=== PATIENT | male | born 1980 | race Caucasian/White ===

== ENCOUNTER 2020-02-22 08:28 | Emergency (ER) | payer SELFPAY ==
[~2020-02-22] VITALS: Ht 172.7 cm; Wt 86.2 kg
[2020-02-22 08:32] VITALS: BP 178/96
--- NOTE | 2020-02-22 08:40 | NUR ---
39/M C/O R HAND PAIN/SWELLING, WORST AT MIDDLE FINGER S/P FALL X YESTERDAY. PT STATES FELL AND PUT FULL WEIGHT ON THE RIGHT HAND. SENSATION INTACT. UNABLE TO PLACE HAND FLAT ON SURFACE, THE FINGERS ESPECIALLY MIDDLE FINGER REMAINS FLEXED. ABLE TO MOVE ALL FINGERS BUT VERY LITTLE MOVEMENT TO MIDDLE FINGER. RADIAL PULSE STRONG. SMALL ABRASION ON RIGHT 5TH DIGIT, OTHERWISE SKIN INTACT. MED HX: DENIES
--- NOTE | 2020-02-22 08:42 | NUR ---
TO XRAY VIA W/C
--- NOTE | 2020-02-22 08:56 | NUR ---
back to bed 07 via w/c
--- NOTE | 2020-02-22 09:42 | NUR ---
Patient discharged with v/s stable. Written and verbal after care instructions given and explained. Patient alert, oriented and verbalized understanding of instructions. Ambulatory with steady gait. All questions addressed prior to discharge. ID band removed. Patient advised to follow up with PMD. Rx of norco and naprosyn given. Patient educated on indication of medication including possible reaction and side effects. Opportunity to ask questions provided and answered. e business specialist contact info, CD images, Xray report given to patient.
[2020-02-22 09:43] VITALS: BP 162/93
== END 2020-02-22 09:42 | disposition home or self-care (01) ==
LOC: MED 08:28
DX: S62.612A Displaced fracture of proximal phalanx of right middle finger, initial encounter for closed fracture (principal); F17.210 Nicotine dependence, cigarettes, uncomplicated; R03.0 Elevated blood-pressure reading, without diagnosis of hypertension; W18.39XA Other fall on same level, initial encounter; Y93.89 Activity, other specified; Y92.89 Other specified places as the place of occurrence of the external cause; Y99.8 Other external cause status
CPT/HCPCS: 73130; 73140; 99284